=== PATIENT | male | born 1955 | race African-American/Black ===

== ENCOUNTER → 2019-04-12 | Emergency (ER) | payer SELFPAY ==
[~2019-04-12] VITALS: Ht 177.8 cm; Wt 75.0 kg
[2019-04-12 18:29] VITALS: BP 144/99
== END | disposition left against medical advice (07) ==
LOC: ER 18:28
DX: Z53.21 Procedure and treatment not carried out due to patient leaving prior to being seen by health care provider (principal)

== ENCOUNTER 2019-04-13 02:32 | Emergency (ER) | payer MEDICAID ==
[~2019-04-13] VITALS: Ht 193 cm; Wt 74.3 kg
[2019-04-13 02:53] VITALS: BP 160/90
== END 2019-04-13 05:41 | disposition home or self-care (01) ==
LOC: ER 04:50
DX: S00.512A Abrasion of oral cavity, initial encounter (principal); I10 Essential (primary) hypertension; F17.200 Nicotine dependence, unspecified, uncomplicated; F12.10 Cannabis abuse, uncomplicated; F15.10 Other stimulant abuse, uncomplicated; X58.XXXA Exposure to other specified factors, initial encounter; Y93.89 Activity, other specified; Y92.89 Other specified places as the place of occurrence of the external cause; Y99.8 Other external cause status; Z98.890 Other specified postprocedural states
CPT/HCPCS: 99281

== ENCOUNTER 2019-05-23 04:33 | Emergency (ER) | payer MEDICAID ==
[~2019-05-23] VITALS: Ht 193 cm; Wt 76.6 kg
[2019-05-23 07:20] VITALS: BP 150/85
== END 2019-05-23 08:19 | disposition home or self-care (01) ==
LOC: ER 04:33
DX: B86 Scabies (principal); M25.50 Pain in unspecified joint; I10 Essential (primary) hypertension; F17.200 Nicotine dependence, unspecified, uncomplicated
CPT/HCPCS: 99282

== ENCOUNTER 2019-08-05 22:36 | Inpatient (IN) | payer MEDICAID ==
[~2019-08-05] VITALS: Ht 193 cm; Wt 73.0 kg
[2019-08-06] MEDS ORDERED: SODIUM CHLORIDE 0.9% 1,000 ML IV ONE (00:58)
[2019-08-06] MEDS ORDERED: CLINDAMYCIN 900 MG in DEXTROSE 5% WATER 50 ML IV ONE (01:00)
[2019-08-06 01:26] LABS: BASOPHILS % 1.2 % (0.0-2.0); EOSINOPHILS % 2.1 % (0.0-5.0); HEMATOCRIT. 32.5 % (42.0-52.0); HEMOGLOBIN. 10.3 g/dL (14.0-18.0); LYMPHOCYTES % 17.7 % (20.0-50.0); MEAN CORPUSCULAR HEMOGLOBIN 21.9 pg (28.0-32.0); MEAN CORPUSCULAR VOLUME 69.5 fL (80.0-94.0); MEAN PLATELET VOLUME 7.3 fl (7.4-10.4); MONOCYTES % 8.4 % (2.0-8.0); NEUTROPHILS % 70.6 % (40.0-76.0); PLATELET 431 x1000/uL (130-400); RED BLOOD CELL COUNT 4.68 mill/uL (4.7-6.1); RED CELL DISTRIBUTION WIDTH 17.7 % (11.6-14.6)
[2019-08-06 01:27] LABS: PLATELET ESTIMATE NORMAL
[2019-08-06 01:30] LABS: CHLORIDE 104 mEq/L (98-107)
[2019-08-06 05:30] VITALS: BP 166/93
[2019-08-06 05:40] VITALS: BP 155/94
[2019-08-06 08:00] VITALS: BP 166/93
[2019-08-06] MEDS ORDERED: CLONIDINE 0.1MG TABLET PO PRN (08:45)
[2019-08-06] MEDS ORDERED: DOCUSATE SODIUM 100MG CAPSULE PO PRN (08:45)
[2019-08-06] MEDS ORDERED: ONDANSETRON HCL 4MG/2ML INJ IV PRN (08:45)
[2019-08-06] MEDS ORDERED: MAGNESIUM/ALUMINUM HYDROXIDE/SIMETHICONE 30ML UDC PO PRN (08:45)
[2019-08-06] MEDS ORDERED: GUAIFENESIN 200MG/10ML SUGAR FREE UDC PO PRN (08:45)
[2019-08-06] MEDS ORDERED: ACETAMINOPHEN 325MG TABLET PO PRN (08:45)
[2019-08-06] MEDS ORDERED: DIPHENHYDRAMINE 50MG/ML VIAL IV PRN (08:45)
[2019-08-06] MEDS ORDERED: IPRATROPIUM/ALBUTEROL 0.5-3(2.5)MG/3ML NEB HHN PRN (08:45)
[2019-08-06 09:28] LABS: PHOSPHORUS 4.1 mg/dL (2.5-4.9)
[2019-08-06] MEDS: ENOXAPARIN 40MG/0.4ML SYR SUBCUT SCH (10:49)
[2019-08-06 12:00] VITALS: BP 154/89
[2019-08-06] MEDS: LISINOPRIL 10MG TABLET PO SCH (14:28)
[2019-08-06] MEDS ORDERED: METHADONE HCL 10MG TABLET PO SCH (14:45)
[2019-08-06 16:00] VITALS: BP 146/90
[2019-08-06 18:29] LABS: HEPATITIS B SURFACE ANTIGEN NEGATIVE
[2019-08-06 18:59] LABS: HEPATITIS A AB IGM NEGATIVE (NEGATIVE)
[2019-08-06 20:00] VITALS: BP 163/98
[2019-08-07] VITALS: BP 160/71
[2019-08-07 04:00] VITALS: BP 192/113
[2019-08-07] MEDS: CEPHALEXIN 250 MG/5 ML 100ML PO SCH ×2 (04:48→09:53)
[2019-08-07 07:41] LABS: BASOPHILS % 1.7 % (0.0-2.0); EOSINOPHILS % 1.4 % (0.0-5.0); HEMATOCRIT. 35.5 % (42.0-52.0); HEMOGLOBIN. 10.9 g/dL (14.0-18.0); MEAN CORPUSCULAR HEMOGLOBIN 21.5 pg (28.0-32.0); MEAN CORPUSCULAR VOLUME 69.8 fL (80.0-94.0); MEAN PLATELET VOLUME 7.2 fl (7.4-10.4); MONOCYTES % 8.8 % (2.0-8.0); NEUTROPHILS % 70.1 % (40.0-76.0); PLATELET 435 x1000/uL (130-400); RED BLOOD CELL COUNT 5.08 mill/uL (4.7-6.1); RED CELL DISTRIBUTION WIDTH 17.4 % (11.6-14.6)
[2019-08-07 08:00] VITALS: BP 167/96
[2019-08-07 08:12] LABS: CHLORIDE 102 mEq/L (98-107)
[2019-08-07 08:22] LABS: LDL CHOLESTEROL 40 mg/dL (5-100)
[2019-08-07 08:23] LABS: HDL CHOLESTEROL 51 mg/dL (40-59)
[2019-08-07] MEDS: ENOXAPARIN 40MG/0.4ML SYR SUBCUT SCH (09:53)
[2019-08-07] MEDS: LISINOPRIL 10MG TABLET PO SCH (09:54)
[2019-08-07] MEDS ORDERED: AMLODIPINE 5MG TABLET PO SCH (10:00)
[2019-08-08 07:12] LABS: HIV SCREEN 4G Non Reactive (Non Reactive)
== END 2019-08-07 12:30 | disposition left against medical advice (07) | DRG 760 ==
LOC: ER 22:36 → 6EST 08-06 02:13 → ENRESERV 08-06 04:44 → 6EST 08-06 09:57
PROVIDERS: ADMIT Internal Medicine; ATTEND Internal Medicine
DX: F22 Delusional disorders (principal); Z91.14 Patient's other noncompliance with medication regimen; B19.20 Unspecified viral hepatitis C without hepatic coma; R53.1 Weakness; L03.811 Cellulitis of head [any part, except face]; Z53.29 Procedure and treatment not carried out because of patient's decision for other reasons; R73.9 Hyperglycemia, unspecified; I10 Essential (primary) hypertension; M10.9 Gout, unspecified; Z59.0 Homelessness
CPT/HCPCS: 36415; 70551; 80061; 83036; 83735; 84100; 84443; 84550; 86705; 86709; 86803; 87070; 87077; 87340; 87389; 93970; 99285; J1650; J3490; J7030; J7060

== ENCOUNTER 2022-03-05 01:44 | Emergency (ER) | payer MEDICAID ==
[~2022-03-05] VITALS: Ht 193 cm; Wt 89.0 kg
[2022-03-05] MEDS ORDERED: IBUPROFEN 400MG TABLET PO NR (07:15)
[2022-03-05] MEDS ORDERED: ACETAMINOPHEN 325MG TABLET PO NR (07:15)
[2022-03-05 10:20] VITALS: BP 197/108
== END 2022-03-05 10:25 | disposition home or self-care (01) ==
LOC: ER 01:44
DX: S93.692A Other sprain of left foot, initial encounter (principal); V19.49XA Pedal cycle driver injured in collision with other motor vehicles in traffic accident, initial encounter; Y93.89 Activity, other specified; Y92.89 Other specified places as the place of occurrence of the external cause; Y99.8 Other external cause status; I10 Essential (primary) hypertension; F17.290 Nicotine dependence, other tobacco product, uncomplicated
CPT/HCPCS: 71045; 73610; 73630; 99284

== ENCOUNTER 2022-11-03 09:56 | Emergency (ER) | payer MEDICAID | END 2022-11-03 10:48 | disposition left against medical advice (07) | LOC: ER 09:56 | DX: Z53.21 Procedure and treatment not carried out due to patient leaving prior to being seen by health care provider (principal) ==

== ENCOUNTER 2024-12-10 08:12 | Emergency (ER) | payer MEDICAID, MEDICARE ==
[~2024-12-10] VITALS: Ht 185.4 cm; Wt 86.0 kg
[2024-12-10 08:17] VITALS: O2SAT 99
[2024-12-10] MEDS: LIDOCAINE HCL/PF 1% 10 MG/ML 5ML VIAL INFIL ONE (09:00)
[2024-12-10] MEDS ORDERED: TOPUD PO (10:54)
[2024-12-10 11:34] VITALS: BP 154/89; PULSE 78; RESP 22; TEMP 36.7; O2SAT 99
== END 2024-12-10 12:19 | disposition home or self-care (01) ==
LOC: ER 08:12
DX: S01.81XA Laceration without foreign body of other part of head, initial encounter (principal); I10 Essential (primary) hypertension; X58.XXXA Exposure to other specified factors, initial encounter; Y93.89 Activity, other specified; Y92.89 Other specified places as the place of occurrence of the external cause; Y99.8 Other external cause status
CPT/HCPCS: 73130; 73630; 70450; 70486; 12013; 99284; J2003; Z7610; A4606

== ENCOUNTER 2025-04-16 12:35 | Emergency (ER) | payer BC, MEDICAID ==
[~2025-04-16] VITALS: Ht 193 cm; Wt 87.0 kg
[~2025-04-16 12:35] MED LIST: TOPUD PO
[2025-04-16 12:51] VITALS: TEMP 36.7; O2SAT 100
[2025-04-16] MEDS ORDERED: DICL100G58 TP (14:49)
[2025-04-16] MEDS ORDERED: GRIS500T6 MT (14:49)
[2025-04-16] MEDS ORDERED: TERB30CR8 TP (14:49)
[2025-04-16] MEDS ORDERED: BO1 TP (14:52)
[2025-04-16] MEDS ORDERED: SULF1TAB48 MT (14:52)
[2025-04-16 15:16] VITALS: BP 169/101; PULSE 80; RESP 17; O2SAT 100
[2025-04-16] MEDS: BACITRACIN ZINC OINT UDPKT TOP ONE (15:23)
== END 2025-04-16 15:28 | disposition home or self-care (01) ==
LOC: ER 12:35
DX: B35.6 Tinea cruris (principal); B35.0 Tinea barbae and tinea capitis; B35.3 Tinea pedis; I10 Essential (primary) hypertension; M10.9 Gout, unspecified; Z79.899 Other long term (current) drug therapy; Z98.890 Other specified postprocedural states
CPT/HCPCS: 99282; 99283